=== PATIENT | female | born 1950 | race Caucasian/White ===

== ENCOUNTER 2024-11-06 10:29 | Outpatient (CLI) | payer OTHER, MEDICAID | END 2024-11-06 10:30 | disposition home or self-care (01) | LOC: CSHWCC 10:29 | PROVIDERS: ATTEND Nurse Practitioner Family | DX: K25.1 Acute gastric ulcer with perforation (principal); S31.105S Unspecified open wound of abdominal wall, periumbilic region without penetration into peritoneal cavity, sequela; K66.8 Other specified disorders of peritoneum; Z72.0 Tobacco use; Z98.0 Intestinal bypass and anastomosis status | CPT/HCPCS: 97605; G0463; 99214 ==

== ENCOUNTER 2024-11-09 09:48 | Outpatient (CLI) | payer OTHER, MEDICAID | END 2024-11-09 09:49 | disposition home or self-care (01) | LOC: CSHWCC 09:48 | PROVIDERS: ATTEND Nurse Practitioner Family | DX: K25.1 Acute gastric ulcer with perforation (principal); S31.105S Unspecified open wound of abdominal wall, periumbilic region without penetration into peritoneal cavity, sequela; K66.8 Other specified disorders of peritoneum; Z98.0 Intestinal bypass and anastomosis status; Z72.0 Tobacco use | CPT/HCPCS: 97605 ==

== ENCOUNTER 2024-11-13 14:35 | Outpatient (CLI) | payer OTHER, MEDICAID | END 2024-11-13 14:36 | disposition home or self-care (01) | LOC: CSHWCC 14:35 | PROVIDERS: ATTEND Nurse Practitioner Family | DX: K25.1 Acute gastric ulcer with perforation (principal); S31.105S Unspecified open wound of abdominal wall, periumbilic region without penetration into peritoneal cavity, sequela; K66.8 Other specified disorders of peritoneum; Z98.0 Intestinal bypass and anastomosis status; Z72.0 Tobacco use | CPT/HCPCS: 11042 ==

== ENCOUNTER 2024-11-16 15:03 | Outpatient (CLI) | payer OTHER, MEDICAID | END 2024-11-16 15:04 | disposition home or self-care (01) | LOC: CSHWCC 15:03 | PROVIDERS: ATTEND Nurse Practitioner Family | DX: K25.1 Acute gastric ulcer with perforation (principal); K66.8 Other specified disorders of peritoneum; S31.105S Unspecified open wound of abdominal wall, periumbilic region without penetration into peritoneal cavity, sequela; Z98.0 Intestinal bypass and anastomosis status; Z72.0 Tobacco use | CPT/HCPCS: 97605 ==

== ENCOUNTER 2024-11-20 14:24 | Outpatient (CLI) | payer OTHER, MEDICAID | END 2024-11-20 14:25 | disposition home or self-care (01) | LOC: CSHWCC 14:24 | PROVIDERS: ATTEND Nurse Practitioner Family | DX: S31.105D Unspecified open wound of abdominal wall, periumbilic region without penetration into peritoneal cavity, subsequent encounter (principal); K25.1 Acute gastric ulcer with perforation; K66.8 Other specified disorders of peritoneum; Z72.0 Tobacco use; Z98.0 Intestinal bypass and anastomosis status | CPT/HCPCS: 87070; 87077; 87186; 87205 ==

== ENCOUNTER 2024-11-29 12:51 | Outpatient (CLI) | payer OTHER, MEDICAID | END 2024-11-29 12:52 | disposition home or self-care (01) | LOC: CSHWCC 12:51 | PROVIDERS: ATTEND Nurse Practitioner Family | DX: K25.1 Acute gastric ulcer with perforation (principal); K66.8 Other specified disorders of peritoneum; S31.105S Unspecified open wound of abdominal wall, periumbilic region without penetration into peritoneal cavity, sequela; Z98.0 Intestinal bypass and anastomosis status; Z72.0 Tobacco use | CPT/HCPCS: 11042; 97605; G0463; 99213 ==

== ENCOUNTER 2024-12-03 11:14 | Outpatient (CLI) | payer OTHER, MEDICAID | END 2024-12-03 11:15 | disposition home or self-care (01) | LOC: CSHWCC 11:14 | PROVIDERS: ATTEND Nurse Practitioner Family | DX: K25.1 Acute gastric ulcer with perforation (principal); K66.8 Other specified disorders of peritoneum; S31.105S Unspecified open wound of abdominal wall, periumbilic region without penetration into peritoneal cavity, sequela; Z72.0 Tobacco use; Z98.0 Intestinal bypass and anastomosis status | CPT/HCPCS: 11042; G0463; 99213 ==

== ENCOUNTER 2024-12-14 08:55 | Outpatient (CLI) | payer OTHER, MEDICAID | END 2024-12-14 08:56 | disposition home or self-care (01) | LOC: CSHWCC 08:55 | PROVIDERS: ATTEND Nurse Practitioner Family | DX: K25.1 Acute gastric ulcer with perforation (principal); K66.8 Other specified disorders of peritoneum; S31.105S Unspecified open wound of abdominal wall, periumbilic region without penetration into peritoneal cavity, sequela; Z98.0 Intestinal bypass and anastomosis status; Z72.0 Tobacco use | CPT/HCPCS: 11042; 97605 ==

== ENCOUNTER 2024-12-17 12:47 | Outpatient (CLI) | payer OTHER, MEDICAID | END 2024-12-17 12:48 | disposition home or self-care (01) | LOC: CSHWCC 12:47 | PROVIDERS: ATTEND Nurse Practitioner Family | DX: K25.1 Acute gastric ulcer with perforation (principal); K66.8 Other specified disorders of peritoneum; S31.105S Unspecified open wound of abdominal wall, periumbilic region without penetration into peritoneal cavity, sequela; Z98.0 Intestinal bypass and anastomosis status; Z72.0 Tobacco use | CPT/HCPCS: 11042; 97605 ==

== ENCOUNTER 2024-12-21 08:31 | Outpatient (CLI) | payer OTHER, MEDICAID | END 2024-12-21 08:32 | disposition home or self-care (01) | LOC: CSHWCC 08:31 | PROVIDERS: ATTEND Nurse Practitioner Family | DX: K25.1 Acute gastric ulcer with perforation (principal); K66.8 Other specified disorders of peritoneum; S31.105S Unspecified open wound of abdominal wall, periumbilic region without penetration into peritoneal cavity, sequela; Z98.0 Intestinal bypass and anastomosis status; Z72.0 Tobacco use | CPT/HCPCS: 97605 ==

== ENCOUNTER 2024-12-28 10:30 | Outpatient (CLI) | payer OTHER, MEDICAID | END 2024-12-28 10:31 | disposition home or self-care (01) | LOC: CSHWCC 10:30 | PROVIDERS: ATTEND Nurse Practitioner Family | DX: K25.1 Acute gastric ulcer with perforation (principal); K66.8 Other specified disorders of peritoneum; S31.105S Unspecified open wound of abdominal wall, periumbilic region without penetration into peritoneal cavity, sequela; Z98.0 Intestinal bypass and anastomosis status; Z72.0 Tobacco use | CPT/HCPCS: 97605 ==

== ENCOUNTER 2025-01-04 13:27 | Outpatient (CLI) | payer OTHER, MEDICAID | END 2025-01-04 13:28 | disposition home or self-care (01) | LOC: CSHWCC 13:27 | PROVIDERS: ATTEND Nurse Practitioner Family | DX: K66.8 Other specified disorders of peritoneum (principal); S31.105S Unspecified open wound of abdominal wall, periumbilic region without penetration into peritoneal cavity, sequela; K25.1 Acute gastric ulcer with perforation; Z72.0 Tobacco use; Z98.0 Intestinal bypass and anastomosis status | CPT/HCPCS: 97605 ==

== ENCOUNTER 2025-01-11 10:17 | Outpatient (CLI) | payer OTHER, MEDICAID | END 2025-01-11 10:18 | disposition home or self-care (01) | LOC: CSHWCC 10:17 | PROVIDERS: ATTEND Nurse Practitioner Family | DX: S31.105D Unspecified open wound of abdominal wall, periumbilic region without penetration into peritoneal cavity, subsequent encounter (principal); K66.8 Other specified disorders of peritoneum; K25.1 Acute gastric ulcer with perforation; Z98.0 Intestinal bypass and anastomosis status; Z72.0 Tobacco use | CPT/HCPCS: 11042; 97605; G0463; 99213 ==

== ENCOUNTER 2025-01-14 12:58 | Outpatient (CLI) | payer OTHER, MEDICAID | END 2025-01-14 12:59 | disposition home or self-care (01) | LOC: CSHWCC 12:58 | PROVIDERS: ATTEND Nurse Practitioner Family | DX: K25.1 Acute gastric ulcer with perforation (principal); K66.8 Other specified disorders of peritoneum; S31.105S Unspecified open wound of abdominal wall, periumbilic region without penetration into peritoneal cavity, sequela; Z98.0 Intestinal bypass and anastomosis status; Z72.0 Tobacco use | CPT/HCPCS: 97605 ==

== ENCOUNTER 2025-01-21 11:02 | Outpatient (CLI) | payer OTHER, MEDICAID | END 2025-01-21 11:03 | disposition home or self-care (01) | LOC: CSHWCC 11:02 | PROVIDERS: ATTEND Nurse Practitioner Family | DX: K25.1 Acute gastric ulcer with perforation (principal); K66.8 Other specified disorders of peritoneum; S31.105S Unspecified open wound of abdominal wall, periumbilic region without penetration into peritoneal cavity, sequela; Z72.0 Tobacco use; Z98.0 Intestinal bypass and anastomosis status | CPT/HCPCS: 97597 ==

== ENCOUNTER 2025-01-29 14:44 | Outpatient (CLI) | payer OTHER | END 2025-01-29 14:45 | disposition home or self-care (01) | LOC: CSHWCC 14:44 | PROVIDERS: ATTEND Nurse Practitioner Family | DX: S31.105D Unspecified open wound of abdominal wall, periumbilic region without penetration into peritoneal cavity, subsequent encounter (principal); K66.8 Other specified disorders of peritoneum; K25.1 Acute gastric ulcer with perforation; Z72.0 Tobacco use; Z98.0 Intestinal bypass and anastomosis status | CPT/HCPCS: 99212; G0463 ==